=== PATIENT | male | born 1940 | race Caucasian/White ===

== ENCOUNTER 2018-01-27 12:36 | Inpatient (IN) | payer MEDICARE ==
[~2018-01-27] VITALS: Ht 185.4 cm; Wt 113.4 kg
--- NOTE | ~2018-01-27 | PROC ---
[address] [address] PROCEDURE REPORT Name: ESSIE MCQUEEN Room: [address] IN ..#: [id number] Admission: 01/27/18 Attend Phys: Tran Naidu MD Discharge: 01/30/18 Date of : 42 Report #: [id number] THIS REPORT FOR: //name// For GI report, please see the Provation report in Perceptive 7 content. By: [id number] Records Staff JESSE /VIDYA
[2018-01-27 12:56] VITALS: BP 160/82
[2018-01-27 13:18] LABS: ABSOLUTE BASOPHILS 0.1 thou/uL (0.0-0.2); ABSOLUTE EOSINOPHILS 0.2 thou/uL (0.0-0.7); ABSOLUTE LYMPHOCYTES 1.4 thou/uL (0.8-5.3); ABSOLUTE MONOCYTES 0.4 thou/uL (0.0-1.2); ABSOLUTE NEUTROPHILS 3.5 thou/uL (1.6-8.1); BASOPHILS 0.9 %; EOSINOPHILS 3.9 %; HEMATOCRIT 39.7 % (42.0-52.0); HEMOGLOBIN 13.5 gm/dL (14.0-18.0); LYMPHOCYTES 24.2 %; MCH 30.6 pg (26.0-34.0); MCHC 34.1 g/dL (28.0-37.0); MCV 89.7 fL (80.0-100.0); MPV 9.8 fl. (7.2-11.1); NUCLEATED RBCS 0 /100WBC; PLATELET COUNT* 239 thou/uL (150-400); RBC 4.42 mil/uL (4.50-6.00); RDW-CV 14.8 % (10.5-14.5); WBC 5.6 thou/uL (4.0-11.0)
[2018-01-27 13:22] LABS: CALCIUM 9.2 mg/dL (8.5-10.1); CREATININE 0.9 mg/dL (0.6-1.3); POTASSIUM 3.6 mmol/L (3.5-5.1)
[2018-01-27 13:26] LABS: ALBUMIN 3.4 g/dL (3.4-5.0); TOTAL BILIRUBIN 9.3 mg/dL (<0.1-1.0); TOTAL PROTEIN 7.5 g/dL (6.4-8.2)
[2018-01-27 14:51] LABS: URINE BLOOD NEGATIVE (Negative); URINE CLARITY CLEAR; URINE COLOR YELLOW; URINE GLUCOSE-RANDOM NEGATIVE (Negative); URINE KETONES NEGATIVE (Negative); URINE LEUKOCYTES-REFLEX NEGATIVE (Negative); URINE NITRITE-REFLEX NEGATIVE (Negative); URINE PROTEIN NEGATIVE (Negative); URINE SPECIFIC GRAVITY <= 1.005 (1.005-1.030); URINE UROBILINOGEN 0.2 E.U./dl (0.2-1.0)
[2018-01-27 14:58] LABS: ICTOTEST (BILI CONFIRMATORY) Positive (Negative); URINE BILIRUBIN 2+ (Negative)
[2018-01-27 15:30] LABS: INR 1.2; PROTIME 12.4 Seconds (9.20-11.50)
[2018-01-27 17:36] VITALS: BP 199/100
--- NOTE | 2018-01-27 18:28 | 2DMMODE ---
[place] [address] 2 D/M-MODE ECHOCARDIOGRAM Name: ESSIE MCQUEEN Room: [address] IN [facility]#: [id number] Admission: 01/27/18 Attend Phys: Tran Naidu, Discharge: Date of : 42 Date of Service: 01/27/18 1828 Report #: [id number] THIS REPORT FOR: //name// APPROVED REPORT Study performed: 01/27/2018 16:29:31 EXAM: Comprehensive 2D, Doppler, and color-flow Echocardiogram Patient Location: In-Patient Room #: ER Status: routine BSA: 2.36 HR: 55 bpm BP: 178/101 mmHg Rhythm: NSR Other Information Study Quality: Good Indications LVH 2D Dimensions IVSd: 8.70 (7-11mm) LVOT Diam: 22.08 (18-24mm) LVDd: 57.49 mm PWd: 7.65 (7-11mm) LVDs: 39.37 (25-40mm) Aortic Root: 34.83 mm Volumes Left Atrial Volume (Systole) LA ESV Index: 37.70 mL/m2 Aortic Valve AoV Peak Alen.: 1.44 m/s AO Peak Gr.: 8.26 mmHg LVOT Max P.90 mmHg AO Mean Gr.: 4.48 mmHg LVOT Mean P.99 mmHg LVOT Max V: 1.11 m/s AO V2 VTI: 32.11 cm LVOT Mean V: 0.63 m/s SYLVIA (VTI): 2.95 cm2 LVOT V1 VTI: 24.71 cm AI Campbell: 1.66 m/s2 AI PHT: 757.35 ms Mitral Valve E/A Ratio: 0.76 [place] [address] 2 D/M-MODE ECHOCARDIOGRAM Name: ESSIE MCQUEEN Room: [address] IN [facility].#: [id number] Admission: 01/27/18 Attend Phys: Tran Naidu, Discharge: Date of : 42 Date of Service: 01/27/18 1828 Report #: [id number] MV Decel. Time: 503.48 ms MV E Max Alen.: 0.54 m/s MV PHT: 146.01 ms MVA (PHT): 1.51 cm2 TDI E/Lateral E': 5.40 E/Medial E': 6.00 Medial E' Alen.: 0.09 m/s Lateral E' Alen.: 0.10 m/s Pulmonary Valve PV Peak Alen.: 0.93 m/s PV Peak Gr.: 3.47 mmHg Tricuspid Valve RAP Estimate: 5.00 mmHg TR Peak Gr.: 26.28 mmHg RVSP: 31.00 mmHg PA Pressure: 31.00 mmHg Left Ventricle The left ventricle is normal size. moderate hypokinesis noted of the inferior wall There is normal left ventricular wall thickness. Left ventricular systolic function is mildly decreased. LVEF is 40-45%. Grade I - abnormal relaxation pattern. Right Ventricle The right ventricle is normal size. The right ventricular systolic function is normal. Atria Left atrium is mildly dilated. The right atrium size is normal. Aortic Valve The aortic valve is normal in structure. Mild aortic regurgitation. There is no aortic valvular stenosis. Mitral Valve There is mitral annular calcification. Trace mitral regurgitation. No evidence of mitral valve stenosis. Tricuspid Valve The tricuspid valve is normal in structure. Trace tricuspid regurgitation. estimated pa pressure 35 mm Hg Pulmonic Valve Pulmonic valve is not well visualized. There [place] [address] 2 D/M-MODE ECHOCARDIOGRAM Name: ESSIE MCQUEEN Room: [address]#: [id number] Admission: 01/27/18 Attend Phys: Tran Naidu, Discharge: Date of : 42 Date of Service: 01/27/18 1828 Report #: [id number] regurgitation. Great Vessels The aortic root is normal in size. IVC is normal in size and collapses >50% with inspiration. Pericardium There is no pericardial effusion. <Conclusion> moderate hypokinesis noted of the inferior wall LVEF is 40-45%. Left atrium is mildly dilated. Mild aortic regurgitation. <ELECTRONICALLY SIGNED> By: Elvis Billings MD, FACC 01/27/181827 27 27 Elvis Billings MD, FACC /INF
--- NOTE | 2018-01-27 18:44 | EKG ---
[place] [address] ELECTROCARDIOGRAM REPORT Name: ESSIE MCQUEEN Room: [address] ADM IN [facility].#: [id number] Admission: 01/27/18 Attend Phys: Tran Naidu MD Discharge: Date of : 42 Report #: [id number] THIS REPORT FOR: //name// [facility] ED Test Date: 2018-01-27 Test Time: 13:21:43 Pat Name: ESSIE MCQUEEN Department: Room: [facility] Gender: M Video Clerk: ZULEMA : 1940 Requested By: Noah Lopes Order Number: [id number] MD: Elvis Billings Measurements Intervals [place] Rate: 53 P: 14 IN: 188 QRS: -12 QRSD: 97 T: 36 QT: 416 QTc: 391 Interpretive Statements Sinus bradycardia Left ventricular hypertrophy Baseline wander in lead(s) V1 No previous ECG available for comparison Electronically Signed On 01-27-2018 18:44:15 SOUBRETTE by Elvis Billings [email or web address] <ELECTRONICALLY SIGNED> By: Elvis Billings MD, [facility] 01/27/18 1844 1321 1321 Elvis Billings MD, [facility] /EPI
[2018-01-27 18:48] VITALS: BP 153/88
[2018-01-27] MEDS ORDERED: ADULT LOW DOSE81 MG PO (18:49)
[2018-01-27] MEDS ORDERED: CALCIUM 500 +1 EAC5 PO (18:50)
--- NOTE | 2018-01-27 19:01 | NUR ---
PATIENT ADMITTED TO ROOM 314 VIA CART FROM ER AT 1745. PATIENT'S ASSESSMENT, HISTORY, AND VITALS CHARTED. PATIENT UP AD PIPO IN ROOM. PATIENT DENIES PAIN. SALINE LOCK NOTED. PATIENT TOLERATING CLEAR LIQUIDS. FAMILY AT BEDSIDE. ORIENTED TO ROOM AND ENVIRONMENT. CALL LIGHT WITHIN REACH. WILL CONTINUE WITH PLAN OF CARE.
[2018-01-27 19:40] VITALS: BP 151/77
[2018-01-27 23:07] LABS: GLYCOHEMOGLOBIN (HGB A1C) 6.2 % (4.8-5.6)
[2018-01-28 00:04] VITALS: BP 152/75
[2018-01-28 04:13] LABS: HEMATOCRIT 38.8 % (42.0-52.0); MCHC 33.6 g/dL (28.0-37.0); MCV 89.3 fL (80.0-100.0); MPV 10.3 fl. (7.2-11.1); RBC 4.34 mil/uL (4.50-6.00); RDW-CV 14.8 % (10.5-14.5); WBC 6.2 thou/uL (4.0-11.0)
[2018-01-28 04:28] LABS: CALCIUM 8.9 mg/dL (8.5-10.1); CREATININE 0.9 mg/dL (0.6-1.3); POTASSIUM 3.8 mmol/L (3.5-5.1)
[2018-01-28 04:32] LABS: ALBUMIN 3.1 g/dL (3.4-5.0); MAGNESIUM 1.8 mg/dL (1.8-2.4); TOTAL BILIRUBIN 9.3 mg/dL (<0.1-1.0); TOTAL PROTEIN 6.4 g/dL (6.4-8.2)
[2018-01-28 05:11] VITALS: BP 148/85
--- NOTE | 2018-01-28 05:54 | NUR ---
VITALS WNL. SEE MAR. SEE CHARTING. HOURLY ROUNDING FOR SAFETY.
[2018-01-28 07:30] VITALS: BP 137/84
[2018-01-28 12:05] LABS: HEPATITIS B SURFACE AG Negative (Negative)
[2018-01-28 15:42] VITALS: BP 125/73
--- NOTE | 2018-01-28 15:47 | NUR ---
SW attempted to meet with pt; pt had many visitors and Neurologist speaking with pt and pt visitors. SW will continue to follow to complete assessment and assist with safe dc planning.
--- NOTE | 2018-01-28 16:14 | NUR ---
PATIENT NPO UNTIL SEEN BY GI, PATIENT STARTED ON REG DIET AND NPO AFTER MIDNIGHT FOR ERCP/STENT PLACEMENT TOMORROW. ONC SAW PATIENT THIS AFTERNOON, AWAITING LABS RESULTS. PATIENT HAD MULTIPLE SOLID TO LOOSE STOOLS, GI AWARE. IVF AND SCHED ABX INFUSED ORDERED. NO COMPLAINTS OF PAIN OR NAUSEA. FAMILY AT BEDSIDE THROUGHOUT THE SHIFT, VERY SUPPORTIVE.
[2018-01-28 20:00] VITALS: BP 155/83
[2018-01-29] VITALS (7 sets, daily range): BP systolic 132–175; BP diastolic 66–94
[2018-01-29 04:26] LABS: HEMATOCRIT 35.8 % (42.0-52.0); HEMOGLOBIN 12.1 gm/dL (14.0-18.0); MCHC 33.7 g/dL (28.0-37.0); MCV 88.9 fL (80.0-100.0); MPV 10.3 fl. (7.2-11.1); RBC 4.03 mil/uL (4.50-6.00); WBC 5.3 thou/uL (4.0-11.0)
[2018-01-29 04:35] LABS: ALBUMIN 2.7 g/dL (3.4-5.0); CALCIUM 8.5 mg/dL (8.5-10.1); CREATININE 0.9 mg/dL (0.6-1.3); MAGNESIUM 1.7 mg/dL (1.8-2.4); POTASSIUM 3.6 mmol/L (3.5-5.1); TOTAL BILIRUBIN 8.5 mg/dL (<0.1-1.0); TOTAL PROTEIN 6.2 g/dL (6.4-8.2)
--- NOTE | 2018-01-29 05:04 | NUR ---
PT SLEPT ON AND OFF THIS SHIFT. ASSESSMENT DOCUMENTED. MEDS GIVEN PER E-APR. IV PATENT, FLUIDS INFUSING. NO REPORTS OF PAIN OR NAUSEA THIS SHIFT. SCD'S IN PLACE. PT UP TO BATHROOM SEVERAL TIMES THIS SHIFT. WILL CONTINUE WITH PLAN OF CARE.
--- NOTE | 2018-01-29 11:42 | NUR ---
SW met with pt to complete initial assessment, introduce self, and SW role. Pt , and 2 dtrs visiting pt. Pt alert, oriented, pleasant. Pt has supportive family. Pt previously independent with ADLs and mobility, no dme, no hh. Pt concerned that pt does not have Part D or any prescription coverage; pt just has 20% discount at [facility]. Pt/family not certain of dc needs at this time. SW to continue to follow to assist with safe dc planning.
--- NOTE | 2018-01-29 17:27 | NUR ---
PATIENT HAD ERCP WITH STENT PLACEMENT THIS AFTERNOON. REG DIET ORDERED AND VITALS STABLE. IVF AND SCHED ABX CONT. FAMILY AT BEDSIDE. NO COMPLAINTS OF PAIN. PATIENT HOPING TO GO HOME TOMORROW.
[2018-01-30] VITALS: BP 131/66
[2018-01-30 04:00] VITALS: BP 132/77
--- NOTE | 2018-01-30 07:45 | NUR ---
PT SLEPT MOST OF SHIFT. ASSESSMENT DOCUMENTED. MEDS GIVEN EPR E-MAR. IV PATENT, FLUIDS INFUSING. NO REPORTS OF PAIN OR NAUSEA THIS SHIFT. TELE MONITOR IN PLACE, DROPPING TO 40'S MOST OF NIGHT, LOW 38 NOTICED ON MONITOR. HEART RATE WOULD JUMP BACK UP TO 60'S WHEN AWAKE. WILL CONTINUE WITH PLAN OF CARE.
[2018-01-30] MEDS ORDERED: CIPRO500 MG PO (09:11)
[2018-01-30] MEDS ORDERED: CARVEDILOL3.125 MG PO (09:11)
[2018-01-30] MEDS ORDERED: FLAGYL500 M1 PO (09:11)
[2018-01-30] MEDS ORDERED: COZAAR 50 MG TA50 M1 PO (09:11)
[2018-01-30 09:35] LABS: CALCIUM 8.3 mg/dL (8.5-10.1); CREATININE 1.1 mg/dL (0.6-1.3); POTASSIUM 3.7 mmol/L (3.5-5.1)
[2018-01-30 09:40] LABS: ALBUMIN 2.8 g/dL (3.4-5.0); TOTAL BILIRUBIN 4.1 mg/dL (<0.1-1.0); TOTAL PROTEIN 5.8 g/dL (6.4-8.2)
[2018-01-30 11:00] VITALS: BP 133/77
[2018-01-30 14:07] VITALS: BP 133/77
--- NOTE | 2018-01-30 15:35 | NUR ---
Received request to speak with pt, spouse and 2 daughters re: insurance coverage for prescriptions and follow up appointments. Pt said he has Medicare and supplement. Explained that the office staff will check insurance coverage prior to appointment. Encouraged pt and family to look into discount coupons for medications and asking PCP for samples if possible. No other needs identified.
[2018-01-30 15:53] VITALS: BP 133/77
--- NOTE | 2018-01-30 15:54 | NUR ---
PATIENT IS ALERT AND ORIENTED VERY PLEASANT. VITAL SIGNS STABLE ON ROOM AIR. HEART RATE IS DEBORAH AT TIMES BUT PATIENT IS ASYMPTOMATIC WITH IT. PATIENT IS UP AD PIPO IN ROOM. PATIENT IS BEING DISCHARGED TO HOME. DISCHARGE INSTRUCTIONS AND PRESCRIPTIONS GIVEN TO PATIENT. QUESTIONS ANSWERED FOR PATIENT AND FAMILY. PATIENT LEFT VIA WHEELCHAIR TO HOME. NUCLEAR STRESS NEEDED FOR THURSDAY, TO DO OUTPATIENT PER CARDIOOLOGY. NURSING BASS FISHER GIVEN INFO TO SCHEDULE AND PASS ON TO THE RADIOOLGY AND LAB.
--- NOTE | 2018-02-01 18:06 | PATH ---
[address] [address] PATHOLOGY RPT PROCEDURE Name: ESSIE MCQUEEN Room: [address] IN [facility]#: [id number] Admission: 01/27/18 Date of : 42 Discharge: 01/30/18 Report #: [id number] Path Case #: [id number] Note [facility] Accession Number: [id number] TESTS RESULT FLAG UNITS REF RANGE LAB Clinician Provided Cytology Information No. of containers..01 Other (Miscellaneous) Source: [A] 01 BILIARY BRUSHING DIAGNOSIS: [A] 02 BILIARY BRUSHING SUSPICIOUS FOR MALIGNANCY/ADENOCARCINOMA. DUCTAL CELLS ARE PRESENT. SEE COMMENT. COMMENT: REVIEWED WITH DR. PASTOR CORRAL, WHO AGREES WITH THE DIAGNOSIS. DR. HOFFMAN NOTIFIED ON AFTERNOON OF 02/01/2018. Signed out by: 02 Joey Madera MD, Pathologist NPI- [id number] Performed by: 01 Fernando Nuñez, Painter And Decorator Apprentice ([facility]) Gross description: 01 5ML, COLORLESS, CLEAR /LCS FLAG LEGEND: L-Low Normal,H-High Normal,LL-Alert Low,HH-Alert High <-Panic Low,>-Panic High,A-Abnormal,AA-Critical Abnormal Performed at: [address] [place] [address] Kodak Ventura MD, [address] [place] [address] [place] [address] Joey Madera MD, Specimen Comment: A courtesy copy of this report has been sent to Specimen Comment: [phone]. Specimen Comment: Report sent to Performed at: [address], [place], [place] [id number] MD Kodak Ventura MD Phone: [phone]
--- NOTE | 2018-02-01 18:06 | PATH ---
[address] [address] PATHOLOGY RPT PROCEDURE Name: ESSIE MCQUEEN Room: [address] IN [facility]#: [id number] Admission: 01/27/18 Date of : 42 Discharge: 01/30/18 Report #: [id number] Path Case #: [id number] Note [facility] Accession Number: [id number] TESTS RESULT FLAG UNITS REF RANGE LAB Clinician Provided Cytology Information No. of containers..01 Other (Miscellaneous) Source: BILIARY BRUSHING DIAGNOSIS: 02 BILIARY BRUSHING RARE ATYPICAL CELLS AND ABUNDANT BENIGN DUCTAL EPITHELIAL CELLS ARE PRESENT. SEE COMMENT. COMMENT:REVIEWED WITH DR. PASTOR CORRAL WHO AGREES WITH THE DIAGNOSIS. DISCUSSED WITH DR. HOFFMAN ON PM OF 02/01/18.b Signed out by: 02 Joey Madera MD, Pathologist NPI- [id number] Performed by: Gurwinder Nuñez, Cover Stitch Machine Operator ([facility]) Gross description: 01 10ML, COLORLESS, CLEAR /LCS FLAG LEGEND: L-Low Normal,H-High Normal,LL-Alert Low,HH-Alert High <-Panic Low,>-Panic High,A-Abnormal,AA-Critical Abnormal Performed at: [address] [place] [address] Kodak Ventura MD, [address] [place] [address] [place] [address] Joey Madera MD, Specimen Comment: A courtesy copy of this report has been sent to Specimen Comment: [phone]. Specimen Comment: Report sent to Performed at: [address], [place], [place] [id number] MD Kodak Ventura MD Phone: [phone]
== END 2018-01-30 16:03 | disposition home or self-care (01) | DRG 435 ==
LOC: M.ERS 12:36 → M.TBA-ER 14:58 → M.3W 14:58
PROVIDERS: Emergency Medicine; Internal Medicine; ADMIT Internal Medicine
DX: C25.0 Malignant neoplasm of head of pancreas (principal); K83.1 Obstruction of bile duct; I50.43 Acute on chronic combined systolic (congestive) and diastolic (congestive) heart failure; I42.9 Cardiomyopathy, unspecified; E44.1 Mild protein-calorie malnutrition; R59.9 Enlarged lymph nodes, unspecified; E80.6 Other disorders of bilirubin metabolism; E86.0 Dehydration; R73.9 Hyperglycemia, unspecified; E78.5 Hyperlipidemia, unspecified; Z79.82 Long term (current) use of aspirin; Z79.899 Other long term (current) drug therapy; Z68.33 Body mass index [BMI] 33.0-33.9, adult

== ENCOUNTER 2019-03-28 00:37 | Inpatient (IN) | payer MEDICARE ==
[~2019-03-28] VITALS: Ht 185.4 cm; Wt 84.0 kg
--- NOTE | ~2019-03-28 | PROC ---
[address] [address] PROCEDURE REPORT Name: ESSIE MCQUEEN Room: [address] IN M.R.#: [id number] Admission: 03/28/19 Attend Phys: Tran Naidu MD Discharge: 03/31/19 Date of : 42 Report #: [id number] THIS REPORT FOR: //name// cc: Kade Up MD, Anthony MD ~ THIS REPORT FOR: //name// For GI report, please see the Provation report in Perceptive 7 content. By: [id number] Records Staff JESSE /VIDYA
[~2019-03-28 00:37] MED LIST: ADULT LOW DOSE81 MG PO; CALCIUM 500 +1 EAC5 PO; CARVEDILOL3.125 MG PO; CIPRO500 MG PO; COZAAR 50 MG TA50 M1 PO; FLAGYL500 M1 PO
[2019-03-28 00:46] VITALS: BP 116/85
[2019-03-28] MEDS ORDERED: ALLOPURINOL 10100 M3 PO (00:55)
[2019-03-28] MEDS ORDERED: ANUSOL-HC25 MG RECTAL (00:56)
[2019-03-28] MEDS ORDERED: HYDROCORT-PRAMO30 G1 TOP (00:56)
[2019-03-28] MEDS ORDERED: ADVIL200 M3 PO (00:57)
[2019-03-28] MEDS ORDERED: LOPERAMIDE 2 MG2 M1 PO (00:57)
[2019-03-28] MEDS ORDERED: [UNRECOGNIZED DRUG - OTHER] PO (00:57)
[2019-03-28] MEDS ORDERED: KLOR-CON M2020 MEQ PO (00:58)
[2019-03-28] MEDS ORDERED: ZUPLENZ8 MG PO (00:58)
[2019-03-28 01:27] LABS: HEMATOCRIT 34.8 % (42.0-52.0); HEMOGLOBIN 11.3 gm/dL (14.0-18.0); MCH 30.3 pg (26.0-34.0); MCHC 32.4 g/dL (28.0-37.0); MCV 93.7 fL (80.0-100.0); MPV 8.2 fl. (7.2-11.1); NUCLEATED RBCS 0 /100WBC; PLATELET COUNT* 251 thou/uL (150-400); RBC 3.72 mil/uL (4.50-6.00); RDW-CV 20.1 % (10.5-14.5)
[2019-03-28 01:33] LABS: CALCIUM 8.3 mg/dL (8.5-10.1); INR 1.3; POTASSIUM 3.5 mmol/L (3.5-5.1); PROTIME 13.4 Seconds (9.20-11.50)
[2019-03-28 01:38] LABS: ALBUMIN 2.9 g/dL (3.4-5.0); TOTAL BILIRUBIN 0.4 mg/dL (<0.1-1.0); TOTAL PROTEIN 6.5 g/dL (6.4-8.2)
[2019-03-28 02:19] LABS: ABSOLUTE LYMPHOCYTES 1.5 thou/uL (0.8-5.3); ABSOLUTE MONOCYTES 0.5 thou/uL (0.0-1.2); ABSOLUTE NEUTROPHILS 13.1 thou/uL (1.6-8.1); ANISOCYTOSIS Occasional; PLATELET ESTIMATE ADEQUATE; TOXIC GRANULATION 2+
[2019-03-28 08:35] LABS: URINE BILIRUBIN NEGATIVE (Negative); URINE BLOOD NEGATIVE (Negative); URINE CLARITY CLEAR; URINE COLOR YELLOW; URINE GLUCOSE-RANDOM NEGATIVE (Negative); URINE KETONES 1+ (Negative); URINE LEUKOCYTES-REFLEX NEGATIVE (Negative); URINE NITRITE-REFLEX NEGATIVE (Negative); URINE PROTEIN TRACE (Negative); URINE UROBILINOGEN 0.2 E.U./dl (0.2-1.0)
[2019-03-28 10:45] VITALS: BP 121/67
[2019-03-28 13:18] LABS: ABSOLUTE BASOPHILS 0.1 thou/uL (0.0-0.2); ABSOLUTE LYMPHOCYTES 1.2 thou/uL (0.8-5.3); ABSOLUTE MONOCYTES 0.6 thou/uL (0.0-1.2); ABSOLUTE NEUTROPHILS 13.1 thou/uL (1.6-8.1); BASOPHILS 0.9 %; EOSINOPHILS 0.2 %; HEMATOCRIT 31.9 % (42.0-52.0); HEMOGLOBIN 10.5 gm/dL (14.0-18.0); MCH 30.8 pg (26.0-34.0); MCHC 32.9 g/dL (28.0-37.0); MCV 93.7 fL (80.0-100.0); MONOCYTES 3.7 %; MPV 7.8 fl. (7.2-11.1); NUCLEATED RBCS 0 /100WBC; PLATELET COUNT* 230 thou/uL (150-400); POLYS 87.2 %; RDW-CV 20.5 % (10.5-14.5)
[2019-03-28 13:35] LABS: ALBUMIN 2.8 g/dL (3.4-5.0); CALCIUM 8.2 mg/dL (8.5-10.1); CREATININE 0.9 mg/dL (0.6-1.3); POTASSIUM 3.8 mmol/L (3.5-5.1); TOTAL BILIRUBIN 0.3 mg/dL (<0.1-1.0)
[2019-03-28 16:00] VITALS: BP 120/70
[2019-03-28 19:20] VITALS: BP 141/70
[2019-03-29 07:30] VITALS: BP 126/80
[2019-03-29 09:30] VITALS: BP 126/80
[2019-03-29 09:36] LABS: HEMATOCRIT 31.4 % (42.0-52.0); HEMOGLOBIN 10.2 gm/dL (14.0-18.0); MCH 30.7 pg (26.0-34.0); MCHC 32.5 g/dL (28.0-37.0); MCV 94.4 fL (80.0-100.0); MPV 8.7 fl. (7.2-11.1); RBC 3.32 mil/uL (4.50-6.00); RDW-CV 20.4 % (10.5-14.5)
--- NOTE | 2019-03-29 12:24 | CON ---
[address] [address] CONSULTATION Name: ESSIE MCQUEEN JUWAN Room: [address] IN M.R.#: [id number] Admission: 03/28/19 Attend Phys: Tran Naidu MD Discharge: Date of : 42 Report #: [id number] THIS REPORT FOR: //name// cc: Kade Up MD, Anthony MD ~ THIS REPORT FOR: //name// CC: Kade Hanson MD DICTATED BY: Jodi Kasper [facility] DATE OF SERVICE: 03/28/2019 Please note at the time of this dictation, the patient was seen and physically examined by myself. REASON FOR CONSULTATION: Abnormal CT and anorexia with some dysphagia. HISTORY OF PRESENT ILLNESS: The patient, over the last 7 days, states he has had a decrease in his appetite and increasing weakness. In the end of February, Dr. Kumar, his radiation oncologist, noticed that he had a spot on his left lung and he had developed a cough, treated him with a Z-MURRAY. Then, he had some left knee swelling and they put him on some steroids and ever since that time, he has continued to go downhill, not having any appetite. He gets full very quickly. He has had increased weight loss over the last several weeks and decreased energy level. He was to have his eleventh chemo treatment last week; however, his blood pressure was significantly low and he was unable to get it. This would be his second time undergoing chemo last year, the first of the year then he had radiation in the summer and then the starting of chemo again this fall with recurrence of his pancreatic cancer. The patient did see Dr. Jhaveri back in 2017 that he had EUS done and a temporary CBD stent was placed. 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 He then went to the GI lab in April and a temporary stent was removed and a permanent stent was placed at that time. He was able to get rid of his cholecystectomy tube at that time as well. and daughters are at his bedside. They state that his CA 19-9 had been running 50 and doing very well, but over the last couple of chemo treatments, his levels continue to elevate. His last CA 19-9 was 120. ALLERGIES: [place] [address] CONSULTATION Name: ESSIE MCQUEEN JUWAN Room: [address] IN ..#: [id number] Admission: 03/28/19 Attend Phys: Tran Naidu MD Discharge: Date of : 42 Report #: [id number] MEDICATIONS FROM HOME: See MAR. PAST MEDICAL HISTORY: Pancreatic cancer, biliary obstruction, history of diverticulosis, and homocysteine mutation. PAST SURGICAL HISTORY: Cholecystectomy and attempted Whipple back in 2019. FAMILY HISTORY: Noncontributory. SOCIAL HISTORY: He lives with his . Alcohol use in the past and family is very supportive. REVIEW OF SYSTEMS: A 12-point review of systems is essentially negative except what is mentioned in the HPI. PHYSICAL EXAMINATION: VITAL SIGNS: Temperature 36.7, pulse 70, respirations 16, and blood pressure 127/64. HEART: Regular rate and rhythm. LUNGS: Diminished. ABDOMEN: Soft. Positive bowel sounds in all 4 quadrants with tenderness noted in the upper epigastric area. LABORATORY DATA: Hemoglobin 11.3, white count is 15, and platelets 251. PT 13.4, INR 1.3, and GFR 72. Total bilirubin 0.4. Alkaline phosphatase is 295, ALT is 36, and AST is 22. CT of the abdomen and pelvis shows concern for marked gastric thickening and underlying thickening of the second portion of the duodenum with inflammatory changes and left pericolic gutter in the descending and splenic flexure area. CT also shows a stent in the CBD as well. IMPRESSION: 1. Dysphagia. 2. He had some vomiting. 3. Abnormal CT, possible stricture in the second segment of the duodenum at the head of the pancreas. Stent noted in the common bile duct. 4. Pancreatic cancer. 5. Status post stent in 04/2018. 6. Anorexia. 7. Weight loss. 8. Early satiety. PLAN: 1. Obtain records from . 2. We can trial some clears. 3. We will await Dr. Condon to further evaluate his films to see whether or not to proceed with an EGD or [place] [address] CONSULTATION Name: ESSIE MCQUEEN JUWAN Room: [address] IN ..#: [id number] Admission: 03/28/19 Attend Phys: Tran Naidu MD Discharge: Date of : 42 Report #: [id number] Thank you for allowing us to participate in this patient's care. Please do not hesitate to call with any questions in regard to this consult. <ELECTRONICALLY SIGNED> By: Sourav Jhaveri MD 03/29/19 1224 1226 2245Sourav Jhaveri MD /nt
[2019-03-29 16:00] VITALS: BP 112/61
[2019-03-30 05:34] LABS: HEMATOCRIT 29.4 % (42.0-52.0); HEMOGLOBIN 9.5 gm/dL (14.0-18.0); MCH 30.7 pg (26.0-34.0); MCHC 32.5 g/dL (28.0-37.0); MCV 94.3 fL (80.0-100.0); MPV 8.1 fl. (7.2-11.1); RBC 3.11 mil/uL (4.50-6.00); RDW-CV 20.3 % (10.5-14.5); WBC 12.5 thou/uL (4.0-11.0)
[2019-03-30 05:46] LABS: CALCIUM 7.6 mg/dL (8.5-10.1); CREATININE 0.8 mg/dL (0.6-1.3); MAGNESIUM 1.8 mg/dL (1.8-2.4); POTASSIUM 3.8 mmol/L (3.5-5.1)
[2019-03-30 08:17] VITALS: BP 116/68
[2019-03-30 13:10] VITALS: BP 114/59
--- NOTE | 2019-03-30 13:56 | EKG ---
[place] [address] ELECTROCARDIOGRAM REPORT Name: ESSIE MCQUEEN Room: [address] ADM IN .R.#: [id number] Admission: 03/28/19 Attend Phys: Tran Naidu, Discharge: Date of : 42 Date of Service: 03/28/19 0052 Report #: [id number] THIS REPORT FOR: cc: Kade Up MD, Anthony MD Holkins,Adam Calvo MD [facility] ~ THIS REPORT FOR: //name// [facility] ED Test Date: 2019-03-28 Test Time: 00:52:58 Pat Name: ESSIE MCQUEEN Department: Room: [facility] Gender: M Deputy Probation Officer: [place] : 1940 Requested By: Ayna Baez Order Number: [id number] MD: Adam Quinn Measurements Intervals [place] Rate: 71 P: 39 ID: 163 QRS: 4 QRSD: 93 T: 45 QT: 405 QTc: 441 Interpretive Statements Sinus rhythm Baseline wander in lead(s) V1 Compared to ECG 01/27/2018 13:21:43 Sinus bradycardia no longer present Left ventricular hypertrophy no longer present Electronically Signed On 03-28-2019 16:10:30 INDUSTRIAL REHABILITATION CONSULTANT by Adam Quinn [email or web address] <ELECTRONICALLY SIGNED> By: Adam Quinn MD, [facility] 03/28/19 1610 Adam Quinn MD, [facility] /EPI
[2019-03-30 16:00] VITALS: BP 93/54
[2019-03-30 21:00] VITALS: BP 100/63
[2019-03-31 04:36] LABS: CALCIUM 7.7 mg/dL (8.5-10.1); CREATININE 0.9 mg/dL (0.6-1.3); MAGNESIUM 1.5 mg/dL (1.8-2.4); POTASSIUM 3.9 mmol/L (3.5-5.1)
[2019-03-31] MEDS ORDERED: NEXIUM40 MG PO (07:57)
[2019-03-31 12:02] VITALS: BP 100/63
[2019-03-31 12:14] VITALS: BP 100/63
[2019-03-31 12:35] VITALS: BP 100/63
== END 2019-03-31 12:40 | disposition home or self-care (01) | DRG 380 ==
LOC: M.ERS 00:37 → M.TBA-ER 02:53 → M.3W 11:10
PROVIDERS: Emergency Medicine; Internal Medicine; Internal Medicine Gastroenterology; ADMIT Internal Medicine
PROC: 0D798DZ Dilation of Duodenum with Intraluminal Device, Via Natural or Artificial Opening Endoscopic (ICD-10-PCS; principal; 2019-03-30)
DX: K31.5 Obstruction of duodenum (principal); K83.1 Obstruction of bile duct; C25.0 Malignant neoplasm of head of pancreas; R65.10 Systemic inflammatory response syndrome (SIRS) of non-infectious origin without acute organ dysfunction; E44.0 Moderate protein-calorie malnutrition; E72.11 Homocystinuria; R68.81 Early satiety; K21.0 Gastro-esophageal reflux disease with esophagitis; R13.10 Dysphagia, unspecified; R63.0 Anorexia; I10 Essential (primary) hypertension; E80.6 Other disorders of bilirubin metabolism; K57.90 Diverticulosis of intestine, part unspecified, without perforation or abscess without bleeding; Z90.49 Acquired absence of other specified parts of digestive tract; Z79.899 Other long term (current) drug therapy; Z72.89 Other problems related to lifestyle; Z80.8 Family history of malignant neoplasm of other organs or systems; Z68.24 Body mass index [BMI] 24.0-24.9, adult

== ENCOUNTER 2019-04-27 19:25 | Inpatient (IN) | payer MEDICARE ==
[~2019-04-27] VITALS: Ht 188 cm; Wt 72.6 kg
[~2019-04-27 19:25] MED LIST changes: +ADVIL200 M3 PO; +ALLOPURINOL 10100 M3 PO; +ANUSOL-HC25 MG RECTAL; +HYDROCORT-PRAMO30 G1 TOP; +KLOR-CON M2020 MEQ PO; +LOPERAMIDE 2 MG2 M1 PO; +NEXIUM40 MG PO; +ZUPLENZ8 MG PO; +[UNRECOGNIZED DRUG - OTHER] PO
[2019-04-27 19:30] VITALS: BP 113/73
[2019-04-27] MEDS ORDERED: ALLOPURINOL 10100 M3 PO (19:55)
[2019-04-27] MEDS ORDERED: MAGNESIUM OXID400 M1 (19:56)
[2019-04-27] MEDS ORDERED: MUCINEX600 MG (19:56)
[2019-04-27] MEDS ORDERED: IBUPROFEN200 M1 PO (19:56)
[2019-04-27 20:00] LABS: HEMATOCRIT 24.6 % (42.0-52.0); HEMOGLOBIN 8.2 gm/dL (14.0-18.0); MCH 30.6 pg (26.0-34.0); MCHC 33.4 g/dL (28.0-37.0); MCV 91.6 fL (80.0-100.0); MPV 8.1 fl. (7.2-11.1); NUCLEATED RBCS 0 /100WBC; PLATELET COUNT* 68 thou/uL (150-400); RBC 2.68 mil/uL (4.50-6.00); RDW-CV 19.2 % (10.5-14.5)
[2019-04-27 20:04] LABS: BE -0.4 mmol/L (-2 to +3); PCO2 23.8 mmHg (35.0-45.0); PO2 87.5 mmHg (75.0-100.0); pH 7.565 (7.340-7.450)
[2019-04-27 20:09] LABS: INFLUENZA A ANTIGEN Negative (Negative); INFLUENZA B ANTIGEN Negative (Negative)
[2019-04-27 20:10] LABS: WBC 1.7 thou/uL (4.0-11.0)
[2019-04-27 20:12] LABS: CALCIUM 7.6 mg/dL (8.5-10.1); CREATININE 0.7 mg/dL (0.6-1.3)
[2019-04-27 20:26] LABS: ALBUMIN 2.4 g/dL (3.4-5.0); MAGNESIUM 1.8 mg/dL (1.8-2.4); TOTAL BILIRUBIN 0.8 mg/dL (<0.1-1.0); TOTAL PROTEIN 5.9 g/dL (6.4-8.2)
[2019-04-27 20:48] LABS: ABSOLUTE LYMPHOCYTES 0.4 thou/uL (0.8-5.3); ABSOLUTE MONOCYTES 0.2 thou/uL (0.0-1.2); ABSOLUTE NEUTROPHILS 1.1 thou/uL (1.6-8.1)
[2019-04-27 20:51] LABS: ANISOCYTOSIS 1+; PLATELET ESTIMATE DECREASED
[2019-04-27 22:25] VITALS: BP 90/50
[2019-04-27 22:45] VITALS: BP 88/51
[2019-04-27 23:44] LABS: URINE BILIRUBIN NEGATIVE (Negative); URINE BLOOD NEGATIVE (Negative); URINE CLARITY CLEAR; URINE COLOR YELLOW; URINE GLUCOSE-RANDOM NEGATIVE (Negative); URINE KETONES NEGATIVE (Negative); URINE LEUKOCYTES-REFLEX NEGATIVE (Negative); URINE NITRITE-REFLEX NEGATIVE (Negative); URINE PROTEIN NEGATIVE (Negative); URINE SPECIFIC GRAVITY 1.015 (1.005-1.030); URINE UROBILINOGEN 0.2 E.U./dl (0.2-1.0)
[2019-04-28 03:46] VITALS: BP 110/61
--- NOTE | 2019-04-28 05:41 | NUR ---
PATIENT ARRIVED ON FLOOR FROM ER AT ABOUT 2230. PATIENT ADMISSION HISTORY AND ASSESSMENT WAS COMPLETED CHARTED. IV FLUIDS CONTINUE TO INFUSE AT 100 ML/HR. PATIENT TEMP WAS DOWN TO 98.4 THIS MORNING. IS AT BEDSIDE. WILL CONTINUE TO MONITOR.
[2019-04-28 08:15] VITALS: BP 92/55
[2019-04-28 11:08] LABS: CALCIUM 7.2 mg/dL (8.5-10.1); CREATININE 0.7 mg/dL (0.6-1.3); MAGNESIUM 1.9 mg/dL (1.8-2.4); POTASSIUM 3.6 mmol/L (3.5-5.1); TOTAL BILIRUBIN 0.6 mg/dL (<0.1-1.0); TOTAL PROTEIN 5.2 g/dL (6.4-8.2)
--- NOTE | 2019-04-28 13:55 | NUR ---
Pt lives at home in an apt with his . Pt has RW, sandy, wc. Pt has hx of refusing HH services. SW to continue to follow to assist with safe dc planning if needs arise.
[2019-04-28 15:43] VITALS: BP 85/44
--- NOTE | 2019-04-28 16:37 | EKG ---
[place] [address] ELECTROCARDIOGRAM REPORT Name: NESTORNICOLASESSIE Room: [address] ADM IN M.R.#: [id number] Admission: 04/27/19 Attend Phys: Son Lopez Discharge: Date of : 42 Date of Service: 04/27/191931 Report #: [id number] THIS REPORT FOR: //name// [facility] ED Test Date: 2019-04-27 Test Time: 19:32:39 Pat Name: ESSIE MCQUEEN Department: Room: [address] Gender: M Remote Operations Producer: COL[place] : 1940 Requested By: Chacha Veronica Order Number: [id number] Lulu MD: Adam Quinn Measurements Intervals [place] Rate: 113 P: 38 FL: 150 QRS: 26 QRSD: 81 T: 62 QT: 307 QTc: 421 Interpretive Statements Sinus tachycardia Compared to ECG 03/28/2019 00:52:58 Sinus rate has increased Electronically Signed On 04-28-2019 16:35:42 CDT by Adam Quinn [email or web address] <ELECTRONICALLY SIGNED> By: Adam Quinn MD, [facility] 04/28/19 1635 31 31 Adam Quinn MD, [facility] /EPI
--- NOTE | 2019-04-28 19:04 | NUR ---
PATIENT AWAKE IN BED WITH FAMILY AT BEDSIDE. ALL SAFETY MEASURES MAINTAINED. PATIENT DENIES FURTHER NEEDS AND PAIN AT THIS TIME. DR. EASON NOTIFIED OF PATIENT'S BLOOD PRESSURE AT 1542.
[2019-04-28 20:30] VITALS: BP 94/54
--- NOTE | 2019-04-29 05:34 | NUR ---
PATIENT SLEPT MOST OF THE NIGHT. IV FLUIDS AND ANTIBIOTICS WERE GIVEN ORDERED. PATIENT HAD NO COMPLAINTS OF PAIN. PATIENT WAS ABLE TO GET UP TO BEDSIDE COMMODE WITH ASSIST. REMAINS AT BEDSIDE. WILL CONTINUE TO MONITOR.
[2019-04-29 06:53] LABS: ABSOLUTE LYMPHOCYTES 0.4 thou/uL (0.8-5.3); ABSOLUTE MONOCYTES 0.1 thou/uL (0.0-1.2); ABSOLUTE NEUTROPHILS 0.6 thou/uL (1.6-8.1); BASOPHILS 0.6 %; EOSINOPHILS 1.9 %; HEMATOCRIT 21.8 % (42.0-52.0); HEMOGLOBIN 7.2 gm/dL (14.0-18.0); LYMPHOCYTES 32.6 %; MCH 30.2 pg (26.0-34.0); MCHC 32.8 g/dL (28.0-37.0); MONOCYTES 9.4 %; MPV 8.6 fl. (7.2-11.1); NUCLEATED RBCS 0 /100WBC; PLATELET COUNT* 71 thou/uL (150-400); POLYS 55.5 %; RBC 2.37 mil/uL (4.50-6.00); RDW-CV 19.5 % (10.5-14.5)
[2019-04-29 06:59] LABS: WBC 1.1 thou/uL (4.0-11.0)
[2019-04-29 07:07] LABS: ALBUMIN 1.9 g/dL (3.4-5.0); CALCIUM 7.3 mg/dL (8.5-10.1); CREATININE 0.7 mg/dL (0.6-1.3); MAGNESIUM 1.7 mg/dL (1.8-2.4); PHOSPHORUS* 1.7 mg/dL (2.5-4.9); POTASSIUM 3.5 mmol/L (3.5-5.1); TOTAL BILIRUBIN 0.4 mg/dL (<0.1-1.0)
--- NOTE | 2019-04-29 07:41 | CON ---
[address] [address] CONSULTATION Name: ESSIE MCQUEEN JUWAN Room: [address] ADM IN M.R.#: [id number] Admission: 04/27/19 Attend Phys: Jackie Zimmerman Discharge: Date of : 42 Report #: [id number] THIS REPORT FOR: //name// cc: Kade Up MD, Anthony MD ~ THIS REPORT FOR: //name// CC: Kade Lopez DATE OF SERVICE: 04/28/2019 INFECTIOUS DISEASE CONSULTATION ATTENDING PHYSICIAN: Dr. Lopez. REASON FOR EVALUATION: Febrile neutropenia, suspected lower respiratory tract infection. HISTORY OF PRESENT ILLNESS: Chart reviewed, patient examined. This is a 78-year-old gentleman with known history of pancreatic cancer, who has ongoing chemotherapy, who was found to have abrupt onset of high-grade fevers to excess of 103. This has been complicated by some weakness, encephalopathy. He was evaluated in the Emergency Room, was found to have neutropenia. It is notable that he had a small bowel stent placed roughly 4 weeks prior and there was concern about possible obstruction per family. Imaging raised question of some bronchiolitis. Influenza antigen was negative. Lactic acid of 1.6. ABGs: pH of 7.565, pO2 of 87.5 that was on 2 liters. White count was 1.7 total, platelets were 68. Had absolute neutrophil count of 1100. Blood cultures collected at time of admission are sterile thus far. Urinalysis was otherwise unremarkable. He is concerned about possible infectious etiology. He was empirically started on therapy with piperacillin, tazobactam, and given a dose of ceftriaxone as well. Currently, he feels significantly better. He is perhaps mildly encephalopathic, but denies significant pain at this point. No gastrointestinal related complaints. ALLERGIES: None known. MEDICATIONS: Include pantoprazole, Zosyn, pancrelipase, promethazine, ondansetron, diphenhydramine, melatonin, allopurinol, ibuprofen, loperamide, and hydrocortisone. PAST MEDICAL HISTORY: Pancreatic cancer, history of diverticulosis, previous Whipple surgery, [place] [address] CONSULTATION Name: ESSIE MCQUEEN Room: [address]#: [id number] Admission: 04/27/19 Attend Phys: Jackie Zimmerman Discharge: Date of : 42 Report #: [id number] SOCIAL HISTORY: Nonsmoker, no ethanol, no illicit drug use. FAMILY HISTORY: Noncontributory. REVIEW OF SYSTEMS: Otherwise, unremarkable 10-point review of systems. PHYSICAL EXAMINATION: GENERAL: He appears chronically ill, undernourished, is pleasant, cooperative, mild to moderate distressed. VITAL SIGNS: Temperature 98.9, pulse 57, respirations 19, blood pressure is 85/44. SKIN: Warm, dry, no rashes. HEENT: Normocephalic. Extraocular muscles intact. NECK: Supple. LUNGS: Few scattered coarse breath sounds. HEART: Regular. Borderline bradycardic. I do not appreciate murmur. ABDOMEN: Soft, nontender, nondistended. EXTREMITIES: No cyanosis. GENITOURINARY AND RECTAL: Deferred. LABORATORY DATA: Lactic acid 1.6. Electrolytes: Sodium 134, potassium 4.0, chloride 102, bicarbonate is 24, anion gap of 8, BUN and creatinine 10 and 0.7, glucose of 115. AST of 76, ALT of 170, alkaline phosphatase of 828. Albumin 2.4, total protein is 5.9, estimated GFR 109. CBC: White count 1.7, H and H of 8.2 and 24.6, platelets of 68, ANC of 1100. Blood cultures sterile thus far. Urinalysis unremarkable. ASSESSMENT: Febrile illness, has a complication of neutropenia in a patient with ongoing chemotherapy, certainly at high risk for infectious complications. There is no focus of pyogenic infection at this point. We will await culture results of the indwelling Port-A-Cath. May repeat the x-ray, could blossom with increasing white count. At this point, he is clearly better, which would hopefully favor a fairly abbreviated course to get his white count to come up, which apparently has had in the past with stimulating factors. Discussed with the patient and spouse. We will follow. <ELECTRONICALLY SIGNED> By: Carlos Chopra MD 04/29/19 0741 1709 [id number] Chopra MD /nt
[2019-04-29 07:50] VITALS: BP 111/63
--- NOTE | 2019-04-29 13:40 | NUR ---
Nutrition: Pt's family very concerned with his nutrition/meals. Pt is in ISOLATION. They state that he needs meal assistance and encouragement to drink Ensure Clears or "he will waste away." They also had concerns for his low fiber diet. Myself and Ofe from dietary reordered pt's lunch tray with family's requested foods. Ofe also special ordered pt's dinner and BKFST for next meals. Please feed assist pt. Defer further assessment at this time.
--- NOTE | 2019-04-29 15:30 | NUR ---
PT ARRIVED TO ROOM 233 VIA BED. ENHANCED PRECAUTIONS IN PLACE. PT INFORMED OF ENHANCED PRECAUTIONS. DISCUSSED WITH FAMILY. PT INFORMED OF NO VISITOR POLICY PT IS BEING TESTED FOR COVID 19 AND IS QUARANTINED UNTIL RESULTS ARE BACK. DIRECTOR OF BUSINESS SERVICES MET WITH FAMILY
--- NOTE | 2019-04-29 15:49 | NUR ---
PATIENT TRANSFERED TO [facility]. REPORT TO [facility]. ISOLATION MAINTAINED. ALL SAFETY MEASURES MAINTAINED. PATIENT DENIED FURTHER NEEDS AT THAT TIME.
[2019-04-29 16:00] VITALS: BP 99/67
--- NOTE | 2019-04-29 17:35 | NUR ---
PT TRANSFERRED TO UNIT THIS AFTERNOON. PT REMAINS IN ENHANCED PRECAUTIONS PENDING RESULTS OF COVID 19 TESTING. HOURLY ROUNDING PERFORMED THROUGH ANTEROOM UNLESS PT CALLS FOR ASSIST TO MINIMIZE STAFF INTERACTION WITH PT. PT INCONTINENT OF BOWEL AND BLADDER,PT CLEANED AND REPOSITIONED. DENIES PAIN. NO SOA OR COUGH NOTED. AFEBRILE. IVF INFUSING. TOLERATING PO WELL. CALL LIGHT WITHIN REACH. BED ALARM ON. FAMILY UPDATED ON PLAN OF CARE
[2019-04-29 20:00] VITALS: BP 111/69
[2019-04-30 03:29] VITALS: BP 102/66
[2019-04-30 03:54] LABS: HEMOGLOBIN 7.3 gm/dL (14.0-18.0); MCH 30.3 pg (26.0-34.0); MCHC 33.1 g/dL (28.0-37.0); MCV 91.3 fL (80.0-100.0); MPV 8.5 fl. (7.2-11.1); NUCLEATED RBCS 1 /100WBC; PLATELET COUNT* 84 thou/uL (150-400); RBC 2.41 mil/uL (4.50-6.00)
[2019-04-30 03:58] LABS: WBC 1.8 thou/uL (4.0-11.0)
[2019-04-30 04:31] LABS: CALCIUM 7.5 mg/dL (8.5-10.1); CREATININE 0.7 mg/dL (0.6-1.3); MAGNESIUM 1.7 mg/dL (1.8-2.4); POTASSIUM 3.5 mmol/L (3.5-5.1); TOTAL BILIRUBIN 0.4 mg/dL (<0.1-1.0); TOTAL PROTEIN 5.2 g/dL (6.4-8.2)
[2019-04-30 06:26] LABS: ABSOLUTE LYMPHOCYTES 0.7 thou/uL (0.8-5.3); ABSOLUTE NEUTROPHILS 1.1 thou/uL (1.6-8.1); ATYPICAL LYMPHS 1 %; PLATELET ESTIMATE ADEQUATE
--- NOTE | 2019-04-30 06:35 | NUR ---
PT SLEPT ON AND OFF THIS SHIFT. ASSESSMENT DOCUMENTED. MEDS GIVEN PER E-MAR. IV PATENT, ABX INFUSED. NO REPORTS OF PAIN OR NAUSEA THIS SHIFT, BUT PT REPORTED HE HAD NAUSEA WITH DINNER. ISOLATION MAINTAINED. FALL PRECAUTIONS IN PLACE. PT ENCOURAGED TO REPOSITION SELF IN BED. PT VOIDED PER URINAL THIS SHIFT. WILL CONTINUE WITH PLAN OF CARE.
[2019-04-30 08:00] VITALS: BP 114/65
--- NOTE | 2019-04-30 08:46 | NUR ---
CALLED LAB TO CHECK STATUS OF COVID 19. LAB CALLED [facility] TO CHECK STATUS AND WAS TOLD RESULTS WILL NOT BE IN UNTIL ABOUT 1800. WILL DISCUSS WITH FAMILY WHEN THEY ARRIVE
--- NOTE | 2019-04-30 15:50 | NUR ---
CALLED [facility] TO CHECK STATUS OF PENDING COVID 19 LABS. PER [facility] RESULTS WILL NOT BE IN UNTIL APPROX 1900 TODAY THEY WERE RAN THIS AM. PT AND FAMILY NOTIFIED
[2019-04-30 16:00] VITALS: BP 117/85
--- NOTE | 2019-04-30 17:05 | NUR ---
PT REMAINS IN ENHANCED PRECAUTIONS PENDING COVID 19 VIRUS. SPOKE TO FAMILY AND GIVEN UPDATES THROUGHOUT SHIFT. PT RESTING IN BED. REPOSITIONS SELF WELL. HOURLY ROUNDING DONE THROUGH ANTEROOM UNLESS PT CALLS FOR ASSIST TO MINIMIZE STAFF EXPOSURE. PT INCONTINENT OF STOOL THIS AM. PT CHANGED AND PERICARE PERFORMED. PT VOIDING PER URINAL. PT TOLERATING PO,POOR APPETITE. PT GIVEN ENSURE BETWEEN MEALS. PT DENIES PAIN
--- NOTE | 2019-04-30 19:03 | NUR ---
RECEIVED CALL FROM LAB STATING THAT COVID 19 LAB WAS NEGATIVE. PT AND FAMILY INFORMED. INFORMED INFECTIOUS CONTROL NURSE,NURSING DERRICK BOAT LEVER OPERATOR AND ALL PHYSICIANS INVOLVED IN PTS CARE
[2019-04-30 20:15] VITALS: BP 98/63
[2019-05-01 00:42] VITALS: BP 108/63
--- NOTE | 2019-05-01 06:53 | NUR ---
PT SLEPT MOST OF SHIFT. ASSESSMENT DOCUMENTED. MEDS GIVEN PER E-MAR. PORT PATENT. NO REPORTS OF PAIN OR NAUSEA THIS SHIFT. WILL CONTINUE WITH PLAN OF CARE.
--- NOTE | 2019-05-01 14:45 | NUR ---
ASSUMED PT CARE AT 0700, PT A&O X4, VSS, RA, BEDREST, MED SURG STATUS. PT TRANSFERRED TO MED SURG FLOOR AT APPROX 1435, FAMILY AT SIDE, ALL BELONGINGS SENT WITH PT. REPORT GIVEN TO YASH TROTTER.
[2019-05-01 18:14] VITALS: BP 89/55
[2019-05-01 20:01] VITALS: BP 101/63
--- NOTE | 2019-05-02 04:46 | NUR ---
ASSUMED CARE AT 1910, ON RA AND TOLERATED. NO DISTESS AND NO PAIN NOTED. PT WAS STRONGER AND CAN STAND UP BESIDE THE BED. STILL WITH DIARHEA, PRN MED GIVEN. CALL LIGHT WITH REACH. KEPT SAFE. CONTINUE MONITORING AND TOWARD GOALS.
[2019-05-02 08:58] VITALS: BP 104/62
--- NOTE | 2019-05-02 15:02 | NUR ---
CM INFORMED BY NURSING THAT THE PATIENT REQUEST TO SPEAK TO CM TO DISUCSS THE NEED FOR DME, AND WANTING A LIST OF DME COMPANIES FOR PURCHASING A COMMODE. CM PROVIDED THE PATIENT'S SPOUSE WITH THE REQUESTED INFO. CM WILL REMAIN AVAILABLE TO ASSIST AND FOLLOW NEEDED.
[2019-05-02 16:00] VITALS: BP 92/52
--- NOTE | 2019-05-02 19:31 | NUR ---
ASSESSMENT COMPLETED DOCUMENTED THIS MORNING. PATIENT FAMILY AT BEDSIDE AND ASSIST WITH NEEDS. PATIENT IS ALERT AND PLEASANT, ONLY REQUIRING ASSIST OF ONE SBA TO BSC FOR LOOSE STOOLS. NO C/O PAIN, APPETITE GOOD AND STATES HE IS FEELING MUCH BETTER.
[2019-05-02 20:30] VITALS: BP 121/73
--- NOTE | 2019-05-03 06:24 | NUR ---
PATIENT SLEPT MOST OF THE NIGHT. IV REMAINS SALINE LOCKED. REMAINS AT BEDSIDE. PATIENT IS POSSIBLY GOING HOME TODAY. WILL CONTINUE TO MONITOR.
[2019-05-03 07:08] LABS: ABSOLUTE LYMPHOCYTES 1.1 thou/uL (0.8-5.3); ABSOLUTE MONOCYTES 0.5 thou/uL (0.0-1.2); ABSOLUTE NEUTROPHILS 4.7 thou/uL (1.6-8.1); EOSINOPHILS 0.6 %; HEMOGLOBIN 7.9 gm/dL (14.0-18.0); NUCLEATED RBCS 0 /100WBC; WBC 6.3 thou/uL (4.0-11.0)
[2019-05-03 07:10] LABS: HEMATOCRIT 23.8 % (42.0-52.0); LYMPHOCYTES 17.4 %; MCH 30.7 pg (26.0-34.0); MCHC 33.1 g/dL (28.0-37.0); MCV 92.7 fL (80.0-100.0); MONOCYTES 7.6 %; MPV 8.2 fl. (7.2-11.1); PLATELET COUNT* 158 thou/uL (150-400); POLYS 74.4 %; RBC 2.56 mil/uL (4.50-6.00); RDW-CV 20.5 % (10.5-14.5)
[2019-05-03 07:18] LABS: CALCIUM 8.1 mg/dL (8.5-10.1); CREATININE 0.8 mg/dL (0.6-1.3); POTASSIUM 3.1 mmol/L (3.5-5.1); TOTAL BILIRUBIN 0.3 mg/dL (<0.1-1.0); TOTAL PROTEIN 5.6 g/dL (6.4-8.2)
[2019-05-03 07:34] LABS: ALBUMIN 2.3 g/dL (3.4-5.0)
[2019-05-03 08:00] VITALS: BP 94/60
--- NOTE | 2019-05-03 09:20 | CON ---
[address] [address] CONSULTATION Name: CHARISSEESSIE LEE Room: [address] IN M.R.#: [id number] Admission: 04/27/19 Attend Phys: Jackie Zimmerman Discharge: Date of : 42 Report #: [id number] THIS REPORT FOR: //name// cc: Kade Up MD, Anthony MD ~ THIS REPORT FOR: //name// CC: Kade Lopez DICTATED BY: Jodi POPE DATE OF SERVICE: 05/02/2019 Please note at the time of this dictation, the patient was seen and physically examined by myself. REASON FOR CONSULTATION: Regarding duodenal stent. HISTORY OF PRESENT ILLNESS: This 78-year-old male presented to the Emergency Room with complaints of fever and chills. He received his last chemo on the and then on the , he states his blood pressure was very low and he had just been having increased weakness and difficulty walking and having a cough with minimal and a lot of coughing. He states he has been doing well with his eating and having some loose stools since he has been here because of the IV antibiotics. He was noted on admission to have some pneumonia and the COVID-19 was ruled out at that time. The patient did undergo a duodenal stent with us on 03/30/2019 for obstructing pancreatic lesion and his alkaline phosphatase went down to 254 on admission. This time, he was up to 828 and he has gone back down to 540. He denies any extensive abdominal discomfort at this time. He did miss his office visit last week due to him being here in the hospital. ALLERGIES: No known drug allergies. HOME MEDICATIONS: Nexium 40 mg b.i.d. and his pancreatic enzymes, Mucinex, Imodium. PAST MEDICAL HISTORY: Pancreatic cancer. PAST SURGICAL HISTORY: [place] teeth diverticulosis, homocysteine mutation, Whipple surgery in 02/2018. FAMILY HISTORY: [place] [address] CONSULTATION Name: ESSIE MCQUEEN Room: [address]#: [id number] Admission: 04/27/19 Attend Phys: Jackie Zimmerman Discharge: Date of : 42 Report #: [id number] SOCIAL HISTORY: Denies any alcohol, tobacco or illegal drug use. REVIEW OF SYSTEMS: Twelve-point review of systems is essentially negative except what is mentioned in the HPI. PHYSICAL EXAMINATION: VITAL SIGNS: Temperature 37.1, pulse 77, respirations 10 and blood pressure 104/62. HEART: Regular rate and rhythm. LUNGS: Diminished, but clear. ABDOMEN: Soft, positive bowel sounds in all 4 quadrants with no masses or tenderness noted. LABORATORY DATA: Hemoglobin 7.3, white count is 1.8, platelets 84. GFR is 106, total bilirubin 0.4, alkaline phosphatase is 540, ALT is 76, ALT is 18. IMPRESSION: 1. Duodenal stent. 2. Pancreatic cancer, status post Whipple, current chemo. 3. Pneumonia. 4. Pancytopenia. PLAN: 1. Discussed with family members regarding his diet and his duodenal stent. 2. Office visit in 4-[address] Hinojosa. Thank you for allowing us to participate in this patient's care. Please do not hesitate to call with any questions in regard to this consult. <ELECTRONICALLY SIGNED> By: Nestor Muñiz DO 05/03/19 0920 1201 [id number] Muñiz DO /nt
[2019-05-03] MEDS ORDERED: CULTURELLE KID1 EAC1 PO (13:55)
[2019-05-03] MEDS ORDERED: LEVOFLOXACIN750 MG PO (13:57)
[2019-05-03 13:59] VITALS: BP 94/60
--- NOTE | 2019-05-03 15:08 | NUR ---
ASSESSMENT COMPLETED DOCUMENTED THIS MORNING. PATIENT STATES HE IS FEELING MUCH STRONGER AND IS READY TO GO HOME. VSS, APPETITE GOOD AND NO C/O PAIN. AT BEDSIDE. DR. SANDOVAL AND DR. SHEEHAN MADE ROUNDS AND OKAY TO DC ORDERS REC'D. 1430 PATIENT DCD VIA W/C ALL BELONGINGS PACKED AND SENT WITH PATIENT AND , DC INSTRUCTIONS GIVEN WITH UNDERSTANDING AND SIGNATURE, PRESCRIPTION FOR LEVOFLOXACIN GIVEN FOR 3 MORE DAYS. TRANSPORTED VIA W/C BY ANTHONY MCMANUS TO DAUGHTER WAITING WITH FAMILY CAR.
[2019-05-03 15:16] VITALS: BP 94/60
[2019-05-04 14:07] LABS: ADENOVIRUS Negative (Negative); INFLUENZA A Negative (Negative); INFLUENZA B Negative (Negative); METAPNEUMOVIRUS Negative (Negative); PARAINFLUENZA 1 Negative (Negative); PARAINFLUENZA 2 Negative (Negative); PARAINFLUENZA 3 Negative (Negative); RHINOVIRUS Negative (Negative); RSV A Negative (Negative); RSV B Negative (Negative)
== END 2019-05-03 14:30 | disposition home or self-care (01) | DRG 871 ==
LOC: M.ERS 19:25 → M.3W 21:10 → M.TBA-ER 21:10 → M.3W 22:50 → M.2W 04-29 15:27 → M.3W 05-01 14:30
PROVIDERS: Internal Medicine; Internal Medicine Gastroenterology; Personal Emergency Response Attendant; Specialist; ADMIT Internal Medicine
DX: A41.9 Sepsis, unspecified organism (principal); J15.1 Pneumonia due to Pseudomonas; E43 Unspecified severe protein-calorie malnutrition; D61.810 Antineoplastic chemotherapy induced pancytopenia; G92 Toxic encephalopathy; C25.9 Malignant neoplasm of pancreas, unspecified; T45.1X5A Adverse effect of antineoplastic and immunosuppressive drugs, initial encounter; Z51.5 Encounter for palliative care; K57.90 Diverticulosis of intestine, part unspecified, without perforation or abscess without bleeding; Z96.89 Presence of other specified functional implants; J40 Bronchitis, not specified as acute or chronic; I95.89 Other hypotension; Z68.20 Body mass index [BMI] 20.0-20.9, adult; Z79.899 Other long term (current) drug therapy; Z90.49 Acquired absence of other specified parts of digestive tract; Z92.21 Personal history of antineoplastic chemotherapy; Y92.89 Other specified places as the place of occurrence of the external cause

== ENCOUNTER 2019-07-31 18:29 | Inpatient (IN) | payer MEDICARE ==
[~2019-07-31] VITALS: Ht 180.3 cm; Wt 75.6 kg
[~2019-07-31 18:29] MED LIST changes: +CULTURELLE KID1 EAC1 PO; +IBUPROFEN200 M1 PO; +LEVOFLOXACIN750 MG PO; +MAGNESIUM OXID400 M1 PO; +MUCINEX600 MG PO
[2019-07-31 18:34] VITALS: BP 112/71
[2019-07-31] MEDS ORDERED: OMEPRAZOLE40 MG PO (18:39)
[2019-07-31 19:07] LABS: HEMATOCRIT 28.7 % (42.0-52.0); HEMOGLOBIN 9.6 gm/dL (14.0-18.0); MCH 31.3 pg (26.0-34.0); MCHC 33.6 g/dL (28.0-37.0); MCV 93.2 fL (80.0-100.0); NUCLEATED RBCS 0 /100WBC; PLATELET COUNT* 278 thou/uL (150-400); RBC 3.08 mil/uL (4.50-6.00); RDW-CV 18.3 % (10.5-14.5); WBC 16.4 thou/uL (4.0-11.0)
[2019-07-31 19:14] LABS: CALCIUM 7.6 mg/dL (8.5-10.1); CREATININE 0.9 mg/dL (0.6-1.3)
[2019-07-31 19:15] LABS: INR 1.3; PROTIME 12.9 Seconds (9.20-11.50)
[2019-07-31 19:29] LABS: ABSOLUTE LYMPHOCYTES 0.3 thou/uL (0.8-5.3); ABSOLUTE MONOCYTES 0.2 thou/uL (0.0-1.2); ABSOLUTE NEUTROPHILS 15.9 thou/uL (1.6-8.1); PLATELET ESTIMATE ADEQUATE
[2019-07-31 19:32] LABS: ALBUMIN 2.3 g/dL (3.4-5.0); TOTAL BILIRUBIN 2.3 mg/dL (<0.1-1.0); TOTAL PROTEIN 5.5 g/dL (6.4-8.2)
[2019-07-31 19:41] LABS: URINE BLOOD NEGATIVE (Negative); URINE CLARITY CLEAR; URINE COLOR YELLOW; URINE GLUCOSE-RANDOM NEGATIVE (Negative); URINE KETONES NEGATIVE (Negative); URINE LEUKOCYTES-REFLEX NEGATIVE (Negative); URINE NITRITE-REFLEX NEGATIVE (Negative); URINE PROTEIN NEGATIVE (Negative)
[2019-07-31 19:42] LABS: ICTOTEST (BILI CONFIRMATORY) Negative (Negative); URINE BILIRUBIN 1+ (Negative)
[2019-07-31 22:36] VITALS: BP 115/67
[2019-07-31 23:15] VITALS: BP 94/55
[2019-08-01 04:00] VITALS: BP 102/64
--- NOTE | 2019-08-01 06:11 | NUR ---
REPORT RECIEVED FROM ER. PT ORIENTED TO ROOM, CALL LIGHT SHOWN, FALL AGREEMENT WENT OVER, PT STATED UNDERSTANDING. ADMISSION DOCUMENTED. MEDS GIVEN PER E-MAR. ISOLATION MAINTAINED. WILL CONTINUE WITH PLAN OF CARE.
[2019-08-01 08:00] VITALS: BP 104/58
[2019-08-01 09:02] LABS: CREATININE 0.8 mg/dL (0.6-1.3); MAGNESIUM 1.8 mg/dL (1.8-2.4); POTASSIUM 3.9 mmol/L (3.5-5.1)
[2019-08-01 12:00] VITALS: BP 89/59
--- NOTE | 2019-08-01 14:55 | EKG ---
[place] [address] ELECTROCARDIOGRAM REPORT Name: NESTORNICOLASESSIECASH ECHEVERRIA Room: [address] ADM IN .R.#: [id number] Admission: 07/31/19 Attend Phys: Tran Naidu, Discharge: Date of : 42 Date of Service: 07/31/19 185 Report #: [id number] THIS REPORT FOR: //name// [facility] ED Test Date: 2019-07-31 Test Time: 18:57:28 Pat Name: ESSIE MCQUEEN Department: Room: [facility] Gender: M Dietetic Tech: [place] : 1940 Requested By: Ifeanyi Fan Order Number: [id number] MD: Elvis Billings Measurements Intervals [place] Rate: 108 P: 43 AR: 157 QRS: 7 QRSD: 83 T: 47 QT: 314 QTc: 421 Interpretive Statements Sinus tachycardia artifact noted supraventricular premature complexes Compared to ECG 04/27/2019 19:32:39 supraventricular premature complex(es) now present Electronically Signed On 08-01-2019 14:54:21 CDT by Elvis Billings [email or web address] <ELECTRONICALLY SIGNED> By: Elvis Billings MD, [facility] 08/01/19 1454 56 56 Elvis Billings MD, [facility] /EPI
--- NOTE | 2019-08-01 15:29 | NUR ---
Pt Covid pending and did not answer his room phone. CM spoke with Pt's via phone. Pt resides at home with her, she assists him as needed. Pt uses a cane during the day and a walker at night. No hx of HH, per , they have 2 supportive dtrs that are available to assist as needed. No hx of SNF. Per Pt, Pt has gotten increasingly weaker over the past few weeks, Pt is currently on chemo for pancreatic CA. Per , both Pt, and dtrs tested negative for covid last week when Pt had a procedure at [place]. Goal is home at mt, No needs anticipated.
[2019-08-01 16:00] VITALS: BP 105/65
--- NOTE | 2019-08-01 17:59 | NUR ---
SPOKE WITH DAUGHTER ELISE FOR AN UPDATE, SHE STATES PT IS SUPPOSED TO HAVE CHEMO TOMORROW. SHE WOULD LIKE TO HAVE PT TO HAVE AN ONCOLOGY CONSULT TOMORROW. ALSO SHE WOULD LIKE THE HOSPITALIST TO CALL HER FOR AN UPDATE AGAIN TOMORROW.
[2019-08-01 19:40] VITALS: BP 105/70
[2019-08-02] VITALS: BP 118/71
[2019-08-02 04:00] VITALS: BP 113/73
--- NOTE | 2019-08-02 04:43 | NUR ---
PT SLEPT MOST OF SHIFT. ASSESSMENT DOCUMENTED. MEDS GIVEN PER E-APR. IV PATENT, FLUDIS FINISHED INFUSING. NO REPORTS OF PAIN THIS SHIFT. TELE MONITOR IN PLACE. DR NOTIFIED OF PTS COVID RESULTS. WILL CONTINUE WITH PLAN OF CARE.
[2019-08-02 07:20] VITALS: BP 121/77
[2019-08-02 12:07] VITALS: BP 124/73
[2019-08-02 16:14] VITALS: BP 123/79
[2019-08-02 19:45] VITALS: BP 124/81
[2019-08-03] VITALS: BP 125/71
[2019-08-03 04:00] VITALS: BP 128/79
--- NOTE | 2019-08-03 06:29 | NUR ---
PT SLEPT ON AND OFF THIS SHIFT. ASSESSMENT DOCUMENTED. MEDS GIVEN PER E-MAR. PORT PATENT. PAIN MEDS GIVEN PER E-MAR FOR PAIN IN HIP AREA. WILL CONTINUE WITH PLAN OF CARE.
[2019-08-03 08:00] VITALS: BP 120/73
[2019-08-03 12:07] VITALS: BP 127/75
--- NOTE | 2019-08-03 12:59 | NUR ---
Per Dr, anticipate dc to home in 1-2 days, no needs anticipated
[2019-08-03 21:45] VITALS: BP 102/73
--- NOTE | 2019-08-04 08:08 | NUR ---
PATIENT WAS A TELE TRANSFER AT ABOUT 2100. PATIENT SLEPT MOST OF THE NIGHT. PATIENT WAS GIVEN PAIN MEDICINE ONCE WITH GOOD RELIEF. WILL CONTINUE TO MONITOR.
[2019-08-04 08:15] VITALS: BP 119/73
[2019-08-04 08:21] LABS: HEMATOCRIT 27.7 % (42.0-52.0); HEMOGLOBIN 9.3 gm/dL (14.0-18.0); MCH 31.2 pg (26.0-34.0); MCHC 33.7 g/dL (28.0-37.0); MCV 92.8 fL (80.0-100.0); MPV 8.1 fl. (7.2-11.1); RBC 2.98 mil/uL (4.50-6.00); RDW-CV 18.9 % (10.5-14.5)
[2019-08-04 08:54] LABS: CREATININE 0.8 mg/dL (0.6-1.3); POTASSIUM 3.6 mmol/L (3.5-5.1); TOTAL BILIRUBIN 0.9 mg/dL (<0.1-1.0); TOTAL PROTEIN 5.5 g/dL (6.4-8.2)
--- NOTE | 2019-08-04 18:21 | NUR ---
PATIENT RESTING IN BED. PATIENT IS UP STANDBY ASSIST TO BATHROOM. PATIENT HAD COMPLAINTS OF STOMACH PAIN THIS EVENING, TREATED ADEQUATELY WITH MEDICATION. PATIENT HAS POOR APPETITE, CLEAR ENSURES PROVIDED. PATIENT WORKED WITH THERAPIES THIS AM. PATIENT DENIES ANY NEEDS AT THIS TIME. CALL LIGHT WITHIN REACH.
[2019-08-04 21:00] VITALS: BP 103/62
--- NOTE | 2019-08-05 05:50 | NUR ---
PATIENT SLEPT MOST OF THE NIGHT. IV FLUIDS WERE STARTED AT 70 ML/HR ORDERED. PATIENT HAD NO COMPLAINTS OF PAIN. WILL CONTINUE TO MONITOR.
[2019-08-05 07:50] VITALS: BP 110/70
[2019-08-05 10:11] VITALS: BP 103/62
[2019-08-05] MEDS ORDERED: CIPROFLOXACIN750 MG PO (10:36)
--- NOTE | 2019-08-05 13:28 | NUR ---
PATIENT DISCHARGED TO HOME. DISCHARGE PAPERS REVIEWED AND SIGNED. PRESCRIPTION AND INFORMATION SHEETS GIVEN. PORT A CATH PACKED WITH HEPARIN AND DEACCESSED. PATIENT DENIES ANY FURTHER NEEDS. PATIENT TAKEN BY WHEELCHAIR TO EXIT. LEFT WITH .
--- NOTE | 2019-08-21 08:28 | CON ---
[address] [address] CONSULTATION Name: ESSIE MCQUEEN JUWAN Room: [address] IN M.R.#: [id number] Admission: 07/31/19 Attend Phys: Tran Naidu MD Discharge: 08/05/19 Date of : 42 Report #: [id number] THIS REPORT FOR: //name// cc: Raman Hanson MD, Ravindra R. MD ~ THIS REPORT FOR: //name// CC: Kade Hanson HISTORY OF PRESENT ILLNESS: A 79-year-old male with history of metastatic pancreatic cancer, who is on palliative chemotherapy, presented to the hospital with high fevers. The patient reports abdominal pain, increased weakness, lethargy, and in the ER reported some increased difficulty with urination. The GI service has been consulted for co-management. The patient denies any pruritus, nausea, vomiting, hematemesis, or hematochezia. He denies any deepening of the color of urine or episodes of obvious jaundice in the last few weeks. PAST MEDICAL HISTORY: Metastatic pancreatic cancer, diverticulosis. PAST SURGICAL HISTORY: The patient had Whipple in 02/2014. SOCIAL HISTORY: The patient denies smoking, alcohol use, or recreational drug use. FAMILY HISTORY: Not relevant. REVIEW OF SYSTEMS: Comprehensive 10-point review of systems is negative except for what was mentioned in the HPI. PHYSICAL EXAMINATION: VITAL SIGNS: Temperature 36.7, pulse rate 75, respirations 18, blood pressure 102/64, pulse ox 94%. GENERAL: The patient is alert, awake, oriented x 3. HEENT: Pupils equal, round, reactive to light and accommodation. Mucous membranes are moist. There is no congestion. Mild icterus noted. EXTREMITIES: Warm, well perfused. There is no edema. SKIN: Warm and dry. LABORATORY DATA: Hemoglobin 9.6, hematocrit 28.7, WBC count 16.4, platelet count 278. INR 1.3. Sodium 140, potassium 3.9, chloride 107, bicarbonate 27, BUN 11, creatinine 0.8, total bilirubin 2.3, AST 183, ALT 230, alkaline phosphatase 1585. IMAGING: CT abdomen and pelvis: Duodenal stent [place] [address] CONSULTATION Name: ESSIE MCQUEEN Room: [address] IN [facility]#: [id number] Admission: 07/31/19 Attend Phys: Tran Naidu MD Discharge: 08/05/19 Date of : 42 Report #: [id number] with interval placement for pancreatic malignancy. Common bile duct shows mild prominence measuring 9 mm. Postoperative changes of cholecystectomy. No abnormalities seen within the spleen. No focal lesions. No evidence in the liver. Inflammatory changes along the pancreas may represent underlying pancreatitis. ASSESSMENT AND PLAN: Pleasant 79-year-old gentleman with pancreatic adenocarcinoma with diffuse mets, is presenting for evaluation of fever and chills. The patient found to have pyelonephritis. There is no evidence of biliary obstruction. Common bile duct appears to be 9 mm in size. The patient is not significantly jaundiced at this time. I would recommend against any GI intervention at this time. Continue treatment for his pyelonephritis and we can reconsider this if his symptoms get significantly worse. Thank you for this consultation <ELECTRONICALLY SIGNED> By: Sourav Jhaveri MD 08/21/19 0828 1137 [id number] Jhaveri MD /nt
== END 2019-08-05 12:00 | disposition home or self-care (01) | DRG 871 ==
LOC: M.ERS 18:29 → M.2W 22:17 → M.TBA-ER 22:17 → M.2W 22:53 → M.3W 08-03 21:32
PROVIDERS: Family Medicine; Internal Medicine; ADMIT Internal Medicine; ATTEND Internal Medicine
DX: A41.9 Sepsis, unspecified organism (principal); E43 Unspecified severe protein-calorie malnutrition; C25.9 Malignant neoplasm of pancreas, unspecified; N12 Tubulo-interstitial nephritis, not specified as acute or chronic; K31.5 Obstruction of duodenum; Z66 Do not resuscitate; K21.0 Gastro-esophageal reflux disease with esophagitis; Z20.828 Contact with and (suspected) exposure to other viral communicable diseases; K08.409 Partial loss of teeth, unspecified cause, unspecified class; Z96.89 Presence of other specified functional implants; K57.90 Diverticulosis of intestine, part unspecified, without perforation or abscess without bleeding; Z79.891 Long term (current) use of opiate analgesic; Z68.23 Body mass index [BMI] 23.0-23.9, adult; Z79.899 Other long term (current) drug therapy; Z87.01 Personal history of pneumonia (recurrent); Z92.21 Personal history of antineoplastic chemotherapy